=== PATIENT | female | born 1955 | race American Indian/Alaskan Native ===

== ENCOUNTER 2020-10-29 08:08 | Outpatient (CLI) | payer MEDICARE | END 2020-10-29 08:09 | disposition home or self-care (01) | LOC: SPVWC 08:08 | PROVIDERS: ATTEND Obstetrics & Gynecology | DX: Z12.31 Encounter for screening mammogram for malignant neoplasm of breast (principal) ==

== ENCOUNTER 2021-11-19 09:44 | Outpatient (CLI) | payer MEDICARE ==
--- NOTE | 2021-11-22 14:27 | Mammography Report ---
DIGITAL SCREENING MAMMOGRAM WITH CAD, 11/19/2021 CLINICAL INFORMATION / INDICATION: Routine screening mammography. TECHNIQUE: Digital right 2D mammography was obtained in the craniocaudal and mediolateral oblique pr ojections. This examination was interpreted with the benefit of Computer-Aided Detection analysis. COMPARISON: 07/27/2018 and 10/29/2020. FINDINGS: Breast Density: There are scattered areas of fibroglandular density. No dominant mass, suspicious calcifications, or architectural distortion in the right breast. Benign-appearing nodularity is stable. No new abnormality is seen. IMPRESSION: No mammographic evidence of malignancy. Follow up recommendation: Routine yearly screening mammogram. - The ACR recommends yearly screening MRI in patients with a personal history of breast cancer who alexander ve dense fibroglandular tissue as well in patients who were diagnosed with breast cancer under the ag e of 50. BI-RADS Category 2: BENIGN. A "normal" or negative report should not discourage follow up or biopsy of a clinically significant f inding. A written summary of these findings will be mailed to the patient. The patient will be entered into a mammography reporting system which will generate a reminder letter for the patient's next appointmen t at the appropriate interval. The [employer] recommends yearly mammograms starting at age 40 and continuing as l jake as a woman is in good health. Breast MRI is recommended for women with an approximate 20-25% or greater lifetime risk of breast cancer, including women with a strong family history of breast or ova mable cancer or who have been treated for Hodgkin's disease. Signer Name: Shane Yost MD Signed: 11/22/2021 2:22 PM Workstation Name: [id number]
== END 2021-11-19 09:45 | disposition home or self-care (01) ==
LOC: SPVWC 09:44
PROVIDERS: ATTEND Obstetrics & Gynecology
DX: Z12.31 Encounter for screening mammogram for malignant neoplasm of breast (principal)